=== PATIENT | male | born 1980 | race Asian ===

== ENCOUNTER 2025-01-27 14:27 | Inpatient (IN) | payer OTHER ==
[~2025-01-27] VITALS: Ht 170.2 cm; Wt 50.3 kg
[2025-01-27] MEDS ORDERED: 0.9% SODIUM CHLORIDE 10 ML SYRINGE IVP PRN (15:15)
[2025-01-27 15:51] LABS: PLATELET COUNT (AUTO) 199 K/uL (150-450); RED BLOOD CELL COUNT(AUTO) 4.49 MIL/uL (4.50-5.90); RED CELL DISTRIBUTION WIDTH 12.7 % (11.5-14.5); WHITE BLOOD COUNT (AUTO) 10.2 K/uL (4.5-11.0)
[2025-01-27 15:53] LABS: CALCIUM, TOTAL 9.1 mg/dL (8.8-10.5); CREATININE 0.84 mg/dL (0.60-1.30); GLOMERULAR FILTR. RATE CALC > 60 mL/min (>60); GLUCOSE,RANDOM 125 mg/dL (70-110); SODIUM SERUM 135 mmol/L (136-145); UREA NITROGEN, BLOOD 10 mg/dL (7-18)
[2025-01-27 16:00] LABS: ASPARTATE AMINOTRANSFERASE 14 U/L (15-37); CREATINE KINASE, TOTAL ONLY 115 U/L (39-308); TOTAL PROTEIN, SERUM 8.1 g/dL (6.4-8.2)
[2025-01-27] MEDS ORDERED: ONDANSETRON HCL 4 MG/2 ML VIAL IVP PRN (16:00)
[2025-01-27] MEDS ORDERED: IPRATROPIUM BROMIDE 0.5 MG/2.5 ML NEB SOLUTION NEB PRN (16:00)
[2025-01-27] MEDS: HEPARIN SODIUM,PORCINE 5,000 UNITS/ML VIAL SQ SCH (16:00)
[2025-01-27] MEDS ORDERED: ALBUTEROL SULFATE 2.5 MG/0.5 ML NEB SOLUTION NEB PRN (16:00)
[2025-01-27 16:09] LABS: TROPONIN I-HIGH SENSITIVITY 4 ng/L (<76)
[2025-01-27 16:12] LABS: LACTIC ACID 2.1 mmol/L (0.4-2.0)
[2025-01-27] MEDS: ACETAMINOPHEN 1000 MG/ISO-OSM 100 ML IV ONE (16:30)
[2025-01-27] MEDS: SODIUM CHLORIDE 0.9% 1,500 ML IV ONE (16:30)
[2025-01-27] MEDS: ACETAMINOPHEN 500 MG TABLET PO ONE (16:31)
[2025-01-27] MEDS: CEFEPIME HCL 2 GM in DEXTROSE 5%-WATER 50 ML IV ONE (16:31)
[2025-01-27] MEDS: VANCOMYCIN 1.25 GM/WATER(PEG) 250 ML IV ONE (16:32)
[2025-01-27] MEDS: KETOROLAC TROMETHAMINE 30 MG/ML VIAL IVP ONE (16:45)
[2025-01-27 16:55] LABS: COVID AG,FIA SOURCE NASAL SWAB
[2025-01-27 17:30] LABS: INFLUENZA TYPE A NEGATIVE FOR TYPE A (NEGATIVE); INFLUENZA TYPE B NEGATIVE FOR TYPE B (NEGATIVE); SARS-COV2 (COVID) ANTIGEN,FIA Negative (Negative)
[2025-01-27 18:10] LABS: APPEARANCE,URINE CLEAR (CLEAR); GLUCOSE, URINE (UA) NEGATIVE (NEGATIVE); LEUKOCYTE ESTERASE ,URINE NEGATIVE (NEGATIVE); NITRATE,URINE NEGATIVE (NEGATIVE); OCCULT BLOOD,URINE NEGATIVE (NEGATIVE); SPECIFIC GRAVITIY, URINE 1.012 (1.003-1.030)
[2025-01-27] MEDS: FAMOTIDINE 20 MG/2 ML VIAL IVP ONE (19:18)
[2025-01-27] MEDS: *CLINICAL-MEROPENEM DOSING CLINICAL ONE (20:16)
[2025-01-27] MEDS: DOCUSATE SODIUM 100 MG CAPSULE PO SCH (21:00)
[2025-01-27 21:05] VITALS: BP 102/76; PULSE 67; RESP 18; TEMP 98.6; O2SAT 98
[2025-01-27] MEDS ORDERED: SODIUM CHLORIDE 0.9% 500 ML IV ONE (22:34)
[2025-01-27] MEDS: MEROPENEM 1 GM in SODIUM CHLORIDE 0.9% 50 ML IV SCH (23:19)
[2025-01-27] MEDS: DEXAMETHASONE SOD PHOS 4 MG/ML 5 ML VIAL IVP ONE (23:20)
[2025-01-28] VITALS (7 sets, daily range): BP systolic 95–106; BP diastolic 61–72; PULSE 50–70; RESP 16–19; TEMP 97.9–98.2; O2SAT 97–100
[2025-01-28] MEDS: VANCOMYCIN 750 MG/WATER(PEG) 150 ML IV SCH (01:00)
[2025-01-28] MEDS: ACETAMINOPHEN 325 MG TABLET PO PRN (01:01)
[2025-01-28 06:52] LABS: PLATELET COUNT (AUTO) 187 K/uL (150-450); RED BLOOD CELL COUNT(AUTO) 4.35 MIL/uL (4.50-5.90); RED CELL DISTRIBUTION WIDTH 12.7 % (11.5-14.5); WHITE BLOOD COUNT (AUTO) 7.4 K/uL (4.5-11.0)
[2025-01-28 07:10] LABS: CALCIUM, TOTAL 8.2 mg/dL (8.8-10.5); CREATININE 0.72 mg/dL (0.60-1.30); GLOMERULAR FILTR. RATE CALC > 60 mL/min (>60); GLUCOSE,RANDOM 158 mg/dL (70-110); SODIUM SERUM 139 mmol/L (136-145); UREA NITROGEN, BLOOD 12 mg/dL (7-18)
[2025-01-28] MEDS ORDERED: ZOLPIDEM TARTRATE 5 MG TABLET PO PRN (10:00)
[2025-01-28] MEDS ORDERED: ONDANSETRON HCL 4 MG/2 ML VIAL IVP PRN (10:00)
[2025-01-28] MEDS ORDERED: ACETAMINOPHEN 325 MG TABLET PO PRN (10:00)
[2025-01-28] MEDS ORDERED: MORPHINE SULFATE 4 MG/ML SYRINGE IVP PRN (10:00)
[2025-01-28] MEDS ORDERED: HYDROCODONE/ACETAMINOPHEN 5-325 MG TABLET PO PRN (10:00)
[2025-01-28] MEDS ORDERED: IPRATROPIUM BROMIDE 0.5 MG/2.5 ML NEB SOLUTION NEB PRN (10:00)
[2025-01-28] MEDS ORDERED: BISACODYL 10 MG RECTAL RECTAL SUPPOSITORY PR PRN (10:00)
[2025-01-28] MEDS ORDERED: ALBUTEROL SULFATE 2.5 MG/0.5 ML NEB SOLUTION NEB PRN (10:00)
[2025-01-28] MEDS: ACYCLOVIR IV SCH (20:03)
[2025-01-28] MEDS: DEXTROSE 5% IV SCH (20:03)
[2025-01-28] MEDS: WATER IV SCH (20:03)
[2025-01-28] MEDS ORDERED: SODIUM CHLORIDE 0.9% 100 ML ONE (22:35)
[2025-01-28] MEDS ORDERED: IOHEXOL 300 MG/ML 100 ML VIAL ONE (22:35)
[2025-01-29 04:14] VITALS: BP 98/61; PULSE 60; RESP 18; TEMP 97.5; O2SAT 99
[2025-01-29 07:00] LABS: CALCIUM, TOTAL 8.2 mg/dL (8.8-10.5); CREATININE 0.60 mg/dL (0.60-1.30); GLOMERULAR FILTR. RATE CALC > 60 mL/min (>60); GLUCOSE,RANDOM 128 mg/dL (70-110); SODIUM SERUM 139 mmol/L (136-145); UREA NITROGEN, BLOOD 19 mg/dL (7-18)
[2025-01-29] MEDS: PANTOPRAZOLE SODIUM 40 MG DR TABLET PO SCH (08:13)
[2025-01-29 08:34] VITALS: BP 99/60; PULSE 59; RESP 18; TEMP 97.7; O2SAT 98
[2025-01-29 12:31] VITALS: BP 90/54; PULSE 65; RESP 17; TEMP 97.7; O2SAT 97
[2025-01-29 15:48] VITALS: BP 91/51; PULSE 63; RESP 18; TEMP 98.4; O2SAT 95
[2025-01-29 19:57] VITALS: BP 103/72; PULSE 60; RESP 19; TEMP 98.2; O2SAT 99
[2025-01-29 23:33] VITALS: BP 102/68; PULSE 50; RESP 18; TEMP 97.5; O2SAT 99
[2025-01-30 05:51] VITALS: BP 108/72; PULSE 57; RESP 19; TEMP 98; O2SAT 99
[2025-01-30 09:02] VITALS: BP 99/69; PULSE 57; RESP 16; TEMP 98.2; O2SAT 99
[2025-01-30 12:06] VITALS: BP 124/70; PULSE 71; RESP 17; TEMP 98.1; O2SAT 99
[2025-01-30 15:46] LABS: CALCIUM, TOTAL 8.8 mg/dL (8.8-10.5); CREATININE 0.72 mg/dL (0.60-1.30); GLOMERULAR FILTR. RATE CALC > 60 mL/min (>60); GLUCOSE,RANDOM 114 mg/dL (70-110); SODIUM SERUM 139 mmol/L (136-145); UREA NITROGEN, BLOOD 15 mg/dL (7-18)
[2025-01-30 16:34] VITALS: BP 97/68; PULSE 70; RESP 18; TEMP 97.7; O2SAT 98
[2025-01-30 21:04] VITALS: BP 95/67; PULSE 62; RESP 16; TEMP 97.5; O2SAT 100
[2025-01-31 00:56] VITALS: BP 93/60; PULSE 63; RESP 16; TEMP 97.7; O2SAT 97
[2025-01-31 04:44] VITALS: BP 95/66; PULSE 60; RESP 14; TEMP 97.3; O2SAT 99
[2025-01-31 08:00] VITALS: BP 95/58; PULSE 69; RESP 16; TEMP 98.4; O2SAT 98
[2025-01-31] MEDS: MAGNESIUM HYDROXIDE SUSPENSION 30 ML UDCUP PO PRN (08:54)
[2025-01-31 14:20] LABS: CALCIUM, TOTAL 8.5 mg/dL (8.8-10.5); CREATININE 0.66 mg/dL (0.60-1.30); GLOMERULAR FILTR. RATE CALC > 60 mL/min (>60); GLUCOSE,RANDOM 120 mg/dL (70-110); SODIUM SERUM 137 mmol/L (136-145); UREA NITROGEN, BLOOD 14 mg/dL (7-18)
[2025-01-31 16:00] VITALS: BP 94/68; PULSE 72; RESP 18; TEMP 98; O2SAT 98
[2025-01-31] MEDS ORDERED: SODIUM CHLORIDE 0.9% 100 ML ONE (16:12)
[2025-02-02 12:07] LABS: WEST NILE VIRUS IGG Positive (Negative); WEST NILE VIRUS IGM Negative (Negative)
== END 2025-01-31 19:40 | disposition left against medical advice (07) | DRG 97 ==
LOC: EMS 14:27 → EDH 17:05 → 5N 21:08
PROVIDERS: ADMIT Internal Medicine; ATTEND Internal Medicine
DX: G03.9 Meningitis, unspecified (principal); E43 Unspecified severe protein-calorie malnutrition; Z68.1 Body mass index [BMI] 19.9 or less, adult; Z20.822 Contact with and (suspected) exposure to COVID-19; Z60.3 Acculturation difficulty; Z53.29 Procedure and treatment not carried out because of patient's decision for other reasons; Z91.199 Patient's noncompliance with other medical treatment and regimen due to unspecified reason; Z88.0 Allergy status to penicillin; Z88.1 Allergy status to other antibiotic agents
CPT/HCPCS: 70450; 71045; 72125; 80048; 80076; 80202; 81003; 82550; 83036; 83605; 83735; 83880; 84145; 84484; 85025; 85610; 86038; 86592; 86788; 86789; 87040; 87430; 87804; 93005; 99285; J0131; J0133; J0692; J1100; J1200; J1644; J1885; J2185; J2919; J3490; J7030; J7040; J7050; J7060; Q9967; 36415-L1; 36415-TC